=== PATIENT | female | born 2000 | race Hispanic/Latino ===

== ENCOUNTER 2021-02-25 21:21 | Inpatient (IN) | payer OTHER ==
[~2021-02-25] VITALS: Ht 154.9 cm; Wt 73.9 kg
[2021-02-25] MEDS ORDERED: OXYTOCIN DRIP 30 UNITS in IV 1 EA IV SCH (22:40)
[2021-02-25] MEDS ORDERED: OXYTOCIN INJ 10 UNITS/ML VIAL (J2590) IV PRN (22:40)
[2021-02-25] MEDS ORDERED: METHYLERGONOVINE MALEATE 0.2 MG/ML VIAL (J2210) IM PRN (22:40)
[2021-02-25] MEDS ORDERED: LACTATED RINGER'S 1000 ML IV ONE (22:40)
[2021-02-25] MEDS ORDERED: OXYTOCIN DRIP 30 UNITS in IV 1 EA IV PRN ×4 (22:40)
[2021-02-25 22:43] VITALS: BP 121/79
--- NOTE | 2021-02-25 23:07 | HPEPDOC ---
Obstetrical History & Physical General Date of Admission Feb 25, 2021 at 21:21 Primary Care Physician: Chuy Avelar MD History of Present Illness PATIENT BOOKED OR IOL WAS TOLD LGA LAST US BABY AT 90% HEAD CIRCUMFERENCE REST AT 82 % EDC 03/01/21 PATIENT AT 39.3 WEEKS . HOWEVER WHILE HERE ON MONITOR GABE Q 5 MINUTES FELT MILD BY PATIENT Chief Complaint: Contractions, term Information Provided By: Patient Age: 20 : 1 Term: 0 Pre-term: 0 Abortions: 0 Livin Care Care: Good Care Number of Visits: 8 Dating Final EDC: Mar 01, 2021 Final EDC for Daily Update: Mar 01, 2021 LMP: May 05, 2020 1st Trimester Date: Mar 01, 2021 Weeks + Days: 9.0 Estimated Date of Confinement: Mar 01, 2021 EGA at Admission: 39.3 Antepartum Course Diagnos(e)s LGA ON US AT 90% TILE Height (inches): 61 Pre- weight (lbs.): 135 Admission Weight (lbs.): 160 Change in Weight (lbs.): 25 Past Medical History Past Obstetrical History : Past Obstetrical History: [employer] History: No pertinent history, History of STD Past Medical History Medical History NON CONTRIBUTORY Surgical History: Denies/None Family History Significant Family History: No pertinent family hx Social History Marital Status: Family situation: Spouse/partner home Psychosocial History: No pertinent psych hx * Smoker: non-smoker Alcohol: Denies Drugs: denies Abuse Violence Screening Have you been hit/kicked/slapp: No Have you been sexually assault: No Imunizations Tdap status: current Influenza Status: current Physical Examination Physical Examination GENERAL: Alert and oriented times three. BREAST: . ABDOMEN: Gravid and non-tender to touch. FETUS: Is vertex (VTX) by sterile vaginal examination (SVE), fetus is vertex (VTX) by Rolly. HEART RATE: Regular rate and rhythm. LUNGS: Clear to auscultation (CTA). EXTREMITIES: No edema. No clonus. Deep tendon reflexes (DTRs) + . Other physical findings HEENT NORMOCEPHALIC ATRAUMATIC NECK FULL RANGE OF MOTIONS PERRLA' CHEST HRR DISTAL PULSES SYMMETRIC LUNGS CTA NO WHEEZE NO RHONCHI BACK RCVA TENDERNESS ABDOMEN GRAVID 4 QUADRANT BOWEL SOUNDS CONTRACTIONS NOTED SF HEIGHT 39 CM NO RASHES LESIONS NO PRURITUS , NO ARTHRALGIA MYALGIA OR JOINT PAIN, NO COUGH NO SOB NO CRAWLEY, NO BRUISING OR BLEEDING NO BLADDER ISSUES NO N/V/D/C Vital Signs/I&O Vital Signs Date Time Temp Pulse Resp B/P (MAP) Pulse Ox O2 Delivery O2 Flow Rate FiO2 02/25/21 22:43 72 121/79 (93) Laboratory Data 24H LABS Laboratory Tests 2 02/25/21 21:34: Serology Scanned Report Hepatitis B Testing Pertinent Laboratoy Data Blood Type: O+ RBC Antibody Screen: Negative HIV: Negative Hepatitis B: Negative Rapid Plasma Reagin: Nonreactive Rubella: Immune Varicella: Nonreactive Chlamydia/Gonorrhea: Negative Group B Streptococcus: Negative Cystic Fibrosis: Negative Anatomy Ultrasound Ultrasound Date: Feb 14, 2021 Placenta Location: Anterior Normal Anatomy: Yes Estimated Weight (grams): 3280 Steroid Therapy Steroid Therapy: No Vaginal Examination Dilation: 2cm Effacement: 60% Station: -3 Cervical Consistency: Soft Cervical Position: Posterior Presentation: Cephalic presentation Assessment Variability: Moderate Accelerations: Present Decelerations: None Tocometer Contractions: Yes Frequency: regular, every 1-5 min. Duration: less than 60 seconds Strength: palpated as mild Assessment/Plan Assessment 20 year-old (G1 para (P)0 at 39.3 weeks by 9 -week ultrasound. Presents to Labor and Delivery (L&D) .FOR IOL BUT GABE Plan Admit and orient. Yard Caller and consent. Diet: NPO Group B Streptococcus (GBS) [negative]. Labs and intravenous (IV) per unit protocol. Counseled on Pitocin and induction of labor (IOL). Lactated Ringers (LR): Bolus 1000 mL, then at 125 mL/hr. Anticipate [normal spontaneous delivery ()]. C-S as appropriate. Labor and Delivery Counseling REVIEWED PATIENT WITH ACTIVE CONTRACTIONS MAY REQUIRE AUGMENTATION REVIEWED RISK RE HEMORRHAGE INFECTION PERFORATION REOPERATION REMOTE BLOOD TRANSFUSION REMOTE HYSTERECTOMY LIFE THREATENING BLEEDING ADMISSION TO NICU. NEED FOR EMERGENCY CS BASED ON OR MATERNAL NEEDS CONSENTED BEFORE USE OF FORCEPS VACUUM RISK LACERATION HEMATOMA SUBDURAL USE MAY CAUSE LACERATIONS BLADDER BOWEL CERVIX UTERUS NEED REPAIR TACHYSYSTOLE MAY OCCUR OR REMOTE UTERINE RUPTURE Chuy Avelar MD Feb 25, 2021 23:06
[2021-02-25 23:18] LABS: HEMATOCRIT 35.2 % (36.0-47.0); MEAN CORPUSCULAR HEMOGLOBIN 31.6 pg (27.0-33.0); MEAN CORPUSCULAR HGB CONC 34.1 g/dl (32.0-36.5); MEAN CORPUSCULAR VOLUME 92.6 fl (80.0-96.0); PLATELET COUNT, AUTOMATED 165 10^3/uL (150-450); WHITE BLOOD COUNT 10.2 10^3/uL (4.0-10.0)
[2021-02-25] MEDS: LR 1,000 ML IV SCH (23:20)
[2021-02-26] VITALS (49 sets, daily range): BP systolic 105–139; BP diastolic 55–86
[2021-02-26] MEDS ORDERED: UNRESOLVED CLARIFICATION ENTRY XX SCH (00:01)
[2021-02-26] MEDS ORDERED: FENTANYL 2MCG/ML ROPIVACAINE 0.2% IN 0.9% NACL 100ML IVBAG As Ordered ONE ×2 (00:42→09:18)
[2021-02-26] MEDS ORDERED: NALOXONE INJ 0.4MG/1ML VIAL (J2310 PER 1MG) IV PRN (01:50)
[2021-02-26] MEDS ORDERED: LACTATED RINGER'S 1000 ML IV PRN (01:50)
[2021-02-26] MEDS ORDERED: diphenhydrAMINE 50MG/ML VIAL (J1200) IV PRN (01:50)
[2021-02-26] MEDS ORDERED: ePHEDrine SULFATE 25 MG/5 ML(5MG/ML) SYRINGE IV PRN (01:50)
[2021-02-26] MEDS ORDERED: EPIDURAL/PCA KEYS XX PRN (01:50)
[2021-02-26] MEDS ORDERED: ONDANSETRON 4MG/2ML VIAL IV PRN (01:50)
[2021-02-26] MEDS ORDERED: EPIDURAL COMMENT XX SCH (01:50)
[2021-02-26] MEDS ORDERED: REFRIGERATOR IV KEYS XX PRN (01:50)
[2021-02-26] MEDS: FENTANYL/ROPIVACAINE/NACL BAG 100 ML EPIDURAL SCH ×2 (05:47→09:25)
--- NOTE | 2021-02-26 06:52 | IPNPDOC ---
Text Note Date of Service The patient was seen on 02/26/21. NOTE POST EPIDURAL EXAMINATION 9 CM -1 STATION OT WELL APPLIED CATAGORY 1 STRIP INTERMITTENT EPIDURAL EFFECTIVE VS,Fishbone, I+O VS, Fishbone, I+O Laboratory Tests 02/25/21 23:12 Vital Signs Date Time Temp Pulse Resp B/P (MAP) Pulse Ox O2 Delivery O2 Flow Rate FiO2 02/26/21 05:30 83 111/76 (88) 02/26/21 04:00 98.6 20 I&O- Last 24 Hours up to 6 AM 02/26/21 06:00 Intake Total 3890 ml Output Total 1250 ml Balance 2640 ml Chuy Avelar MD Feb 26, 2021 06:52
[2021-02-26] MEDS ORDERED: fentaNYL 100 MCG/2 ML INJECTION (J3010) As Ordered ONE (08:01)
--- NOTE | 2021-02-26 09:49 | IPNPDOC ---
Obstetrical Progress Note Date of Service Feb 26, 2021 Subjective Patient uncomfortable on L side, anesthesia at bedside to assess epidural. Otherwise without complaint Objective Vital Signs Date Time Temp Pulse Resp B/P (MAP) Pulse Ox O2 Delivery O2 Flow Rate FiO2 02/26/21 08:36 95 18 114/73 (87) 02/26/21 08:26 98 Room Air 02/26/21 07:10 98.2 Assessment Heart Rate (FHR): 130 Variability: Moderate Accelerations: Positive Decelerations: Early Heart Rate Tracing: Category I Tocometer Contractions: Yes Frequency: regular, every 2-5 min. Sterile Vaginal Examination Dilation: complete Effacement (%): 100% Station: +1 (per nurse exam) Postion/Presentation: Cephalic presentation Assessment and Plan Status: Reassuring Group B Streptococcus: Negative Anticipate: Vaginal Delivery Additional Comments 20yo at 39w4d admitted for IOL secondary to concern for LGA. Pt uncomfortable on L side, epidural redosed. RN attempted practice push with poor maternal pushing efforts. Offered to attempt pushing again vs. allowing pt to try to rest with epidural redose. Pt requesting to wait. status reassuring. Will reassess in 1 hr ALBAN VINES M.D. Feb 26, 2021 09:49
[2021-02-26] MEDS ORDERED: LIDOCAINE 1% MDV 50ML VIAL As Ordered ONE (13:30)
[2021-02-26 13:38] LABS: CORD GAS ABE A -10.2; CORD GAS HCO3 A 19.8 MEQ/L; CORD GAS PCO2 A 60.5 mmHg; CORD GAS PH A 7.133 UNITS; CORD GAS SBC A 15.6 MEQ/L; CORD GAS TCO2 A 21.7 MEQ/L
[2021-02-26 13:41] LABS: CORD GAS ABE V -11.1; CORD GAS HCO3 V 16.7 MEQ/L; CORD GAS O2 SAT V 70.3 %; CORD GAS PCO2 V 44.2 mmHg; CORD GAS PH V 7.196 UNITS; CORD GAS PO2 V 33.7 mmHg; CORD GAS SBC V 15.3 MEQ/L; CORD GAS TCO2 V 18.1 MEQ/L
[2021-02-26] MEDS ORDERED: LIDOCAINE 1% MDV 50ML VIAL SC ONE (14:00)
[2021-02-26] MEDS ORDERED: ACETAMINOPHEN TAB 650MG DOSE (2X325MG) PO PRN (14:00)
[2021-02-26] MEDS ORDERED: DIBUCAINE 1% OINTMENT 30GM TOP PRN (14:00)
[2021-02-26] MEDS ORDERED: MEASLES,MUMPS,RUBELLA VACCINE INJ (MMR-II) (90707) SC SCH (14:00)
[2021-02-26] MEDS ORDERED: DOCUSATE SODIUM 100MG CAPSULE PO PRN (14:00)
[2021-02-26] MEDS ORDERED: IBUPROFEN 600MG TAB PO PRN (14:00)
[2021-02-26] MEDS ORDERED: RHOGAM 300 MCG (1500 IU) INJ (J2790) IM SCH (14:00)
[2021-02-26] MEDS ORDERED: ACETAMINOPHEN 500 MG TAB PO PRN (14:00)
[2021-02-26] MEDS ORDERED: METHYLERGONOVINE MALEATE 0.2 MG TAB PO PRN (14:00)
--- NOTE | 2021-02-26 14:21 | DNPDOC ---
[facility] Delivery Note Delivery Note DATE OF DELIVERY: 02/26/21 PREDELIVERY DIAGNOSIS: 39 4/7 weeks' gestation and labor. POST DELIVERY DIAGNOSIS: Delivered. PROCEDURE: Spontaneous vaginal delivery. Repair of R labial laceration LOCK AND DAM REPAIRER: Dr. Vines ANESTHESIA: Epidural ESTIMATED BLOOD LOSS: 200 mL. FINDINGS: 7 pound 13 ounce male , Score 7/9. Terminal meconium noted. R labial laceration - repaired. Cord gases pending. DELIVERY SUMMARY: 20yo at 39w4d admitted for IOL secondary to concern for LGA. IOL performed with pitocin. She progressed to C/C/+1 and was allowed to push. Patient initially had poor maternal pushing efforts due to epidural. She slowly progressed to +3 station and delivered the head in OA position. Head was allowed to restitute to YIN. Anterior shoulder delivered without difficulty and infant placed on mother's abdomen. Terminal meconium noted. Cord doubly clamped and cut by father of baby. Cord gasses obtained. Placenta delivered intact. Perineum inspected with R labial laceration noted. EBL 200cc. Mom and baby stable immediately ALBAN VINES M.D. Feb 26, 2021 14:21
[2021-02-26] MEDS: LR 1,000 ML IV SCH (14:40)
[2021-02-26] MEDS ORDERED: SLF 3 ML SYR IV PRN (15:05)
[2021-02-26] MEDS: IBUPROFEN 800 MG TAB PO PRN (16:58)
[2021-02-26] MEDS: PRENATAL VITAMINS CHEWABLE TABLET PO SCH (17:16)
[2021-02-26] MEDS: SLF 3 ML SYR IV SCH (23:35)
[2021-02-27 06:00] VITALS: BP 111/61
[2021-02-27] MEDS: SLF 3 ML SYR IV SCH ×2 (06:39→14:00)
--- NOTE | 2021-02-27 07:40 | IPNPDOC ---
Progress Note Date of Service: Feb 27, 2021 Progress Note SUBJECT: Aicha is a 20-year-old 1 now Para 1001 status post uncomplicated spontaneous vaginal delivery at 39 4/7 weeks' on 02/26/21 of a 7 pound 13 ounce male infant, Score 7/9. Terminal meconium noted. R labial laceration. Pt doing well day # 1. She has been ambulating, voiding spontaneously without issue and tolerating regular diet. Breast feeding without issue. Reports lochia is minimal. OBJECTIVE: VITAL SIGNS: Within normal limits, afebrile. Alert and oriented times three. normal work of breathing Heart rate: Regular rate and rhythm Abdomen: Fundus firm at U-2. Soft, NTTP. ASSESSMENT: Aicha is a 20-year-old 1 now Para 1001 status post uncomplicated spontaneous vaginal delivery at 39 4/7 weeks' on 02/26/21 of a 7 pound 13 ounce male infant, Score 7/9. Terminal meconium noted. R labial laceration. Pt doing well day # 1. Vitals within normal limits, afebrile, hemodynamically stable with no evidence of infection. PLAN: 1. Discharge to home tomorrow. 2. Tylenol and Motrin for pain. 3. Encourage breast feeding and ambulation. 4. Has minipill for contraception 5. Routine PP visit in 6 weeks in clinic. 6. Discussed return precautions at length. VS, I&O, 24H, Fishbone Vital Signs/I&O Vital Signs Label Value Date Time Patient Temperature 97.8 degrees F 02/27/21 0600 Temperature Source Temporal 02/27/21 0600 Pulse 105 02/27/21 0600 Respiratory Rate 18 bpm 02/27/21 0600 Blood Pressure Assessment 111/61 (78) 02/27/21 0600 Source Automatic Cuff (NIBP) Bedside Pulse Oximetry 100 % 02/27/21 0600 Vital Signs Date Time Temp Pulse Resp B/P (MAP) Pulse Ox O2 Delivery O2 Flow Rate FiO2 02/27/21 06:00 97.8 105 18 111/61 (78) 100 Room Air 02/26/21 18:00 98.5 83 18 123/73 (90) 97 02/26/21 16:10 98.3 81 18 119/77 (91) 97 Room Air 02/26/21 08:36 95 18 114/73 (87) 02/26/21 08:26 75 18 115/67 (83) 98 Room Air 02/26/21 08:22 81 18 112/69 (83) 02/26/21 08:16 90 18 117/55 (75) 97 Room Air 02/26/21 08:15 88 18 02/26/21 08:11 84 18 139/83 (101) 100 Room Air 02/26/21 08:02 88 18 120/73 (89) 100 Room Air 02/26/21 07:56 88 18 118/72 (87) 97 Room Air 02/26/21 07:50 91 18 135/84 (101) 100 Room Air 02/26/21 07:41 89 18 131/80 (97) Intake & Output 02/27/21 05:59 Intake Total 2056 ml Output Total 1850 ml Balance 206 ml Laboratory Tests 02/26/21 13:33: Cord Arterial Blood pH 7.133, Cord Arterial Blood PCO2 60.5, Cord Arterial Blood PO2 26.0, Cord Arterial Blood HCO3 19.8, Cord Arterial Blood Total CO2 21.7, Cord Arterial Blood Base Excess -10.2, Cord Arterial Base Excess (Standard 15.6, Cord Arterial Bld Oxygen Saturation 51.0, Cord Venous Blood pH 7.196, Cord Venous Blood PCO2 44.2, Cord Venous Blood PO2 33.7, Cord Venous Blood HCO3 16.7, Cord Venous Blood Total CO2 18.1, Cord Venous Base Excess (Actual) -11.1, Cord Venous Base Excess (Standard) 15.3, Cord Venous Blood Oxygen Saturation 70.3 Current Medications Medications (Trade) Dose Ordered Sig/Kiersten Route PRN Reason Start Time Stop Time Status Last Admin Dose Admin Dibucaine (Dibucaine 1%) Apply to perineum Q4H PRN TOP pp 02/26/21 14:00 02/26/21 16:58 1 DOSE Ibuprofen (Advil) 800 mg Q8HP PRN PO PAIN LEVEL 6-10 02/26/21 14:00 02/26/21 16:58 800 MG Sodium Chloride (Saline Lock Flush) 2 ml SLF IV 02/26/21 22:00 02/27/21 06:39 2 ML Vital Signs Date Time Temp Pulse Resp B/P (MAP) Pulse Ox O2 Delivery O2 Flow Rate FiO2 02/26/21 18:00 98.5 83 18 123/73 (90) 97 02/26/21 16:10 Room Air I&O- Last 24 Hours up to 6 AM 02/27/21 05:59 Intake Total 2056 ml Output Total 1850 ml Balance 206 ml Laboratory Data 24H LABS Laboratory Tests 2 02/26/21 13:33: Cord Arterial Blood pH 7.133, Cord Arterial Blood PCO2 60.5, Cord Arterial Blood PO2 26.0, Cord Arterial Blood HCO3 19.8, Cord Arterial Blood Total CO2 21.7, Cord Arterial Blood Base Excess -10.2, Cord Arterial Base Excess (Standard 15.6, Cord Arterial Bld Oxygen Saturation 51.0, Cord Venous Blood pH 7.196, Cord Venous Blood PCO2 44.2, Cord Venous Blood PO2 33.7, Cord Venous Blood HCO3 16.7, Cord Venous Blood Total CO2 18.1, Cord Venous Base Excess (Actual) -11.1, Cord Venous Base Excess (Standard) 15.3, Cord Venous Blood Oxygen Saturation 70.3 ALBAN VINES M.D. Feb 27, 2021 05:03
[2021-02-27] MEDS: PRENATAL VITAMINS CHEWABLE TABLET PO SCH (09:38)
[2021-02-27] MEDS: IBUPROFEN 800 MG TAB PO PRN (14:48)
[2021-02-27 17:50] VITALS: BP 115/78
[2021-02-28 05:56] VITALS: BP 116/71
[2021-02-28] MEDS ORDERED: IBUP-1022 PO (06:59)
[2021-02-28] MEDS ORDERED: COLA100C5 PO (06:59)
--- NOTE | 2021-02-28 07:15 | DSES ---
DISCHARGE SUMMARY DATE OF ADMISSION: 02/25/2021 DATE OF DISCHARGE: 02/28/2021 BRIEF HISTORY: Patient is a 20-year-old 1 now para 1, admitted for induction of labor because of a large for gestational age at 39 and 4 weeks gestation. Epidural in place, male infant, 7 pounds, 13 ounces, 3540 grams. Apgars of 7 and 9 at 1 and 5 minutes respectively. Terminal meconium was noted. Arterial pH 7.13, base excess -10.2, venous pH 7.19, base excess -11.1. On her second day we discussed phlebitis, cystitis, mastitis, endometritis, cellulitis, diet, exercise, pain management, perineal and breast care. OBJECTIVE: Her vital signs on discharge: Blood pressure 116/71, respirations 16, pulse 78, temperature 98.0. Her admitting hemoglobin was 12.0, hematocrit 35.2 and platelets are 165,000. The rest of the examination is unremarkable. Normocephalic, atraumatic. Neck is with full range of motion. Pupils are equal and reactive to light. Distal pulses are symmetric. No evidence of DVT, PE or superficial phlebitis. Chest is clear bilaterally at bases. No wheezes or rhonchi. No CVA tenderness. Abdomen is soft, four quadrant bowel sounds are noted. The uterus is 2 below. Lochial is moderate. The perineum is healing. No rashes, lesions or pruritus. No arthralgia or myalgias. No complaint of joint pain. No complaint of cough, wheeze, shortness of breath or dyspnea on exertion. No nausea, vomiting, diarrhea or constipation. No urgency or frequency. IMPRESSION: In summary, we have a term gestation, delivered a livebirth male infant. We discussed medication pickup at [facility], a six week checkup at [facility]. All questions were answered. A 20 minute discussion. Patient was discharged improved. cc: [facility]
[2021-02-28] MEDS: PRENATAL VITAMINS CHEWABLE TABLET PO SCH (09:04)
[2021-02-28] MEDS: IBUPROFEN 800 MG TAB PO PRN (13:34)
--- NOTE | 2021-03-01 17:24 | IPN ---
PROGRESS NOTE DATE: 02/27/2021 SUBJECTIVE: This patient requested circumcision of their male infant. After discussing risks and benefits of circumcision, the medical and nonmedical indications, the penile block and aftercare, expressed understanding of penile block, aftercare and bleeding, signed the consent form. All questions were answered, 20 minute discussion. We await clearance by the teller.
== END 2021-02-28 14:59 | disposition home or self-care (01) | DRG 807 ==
LOC: M LDI 21:21 → M OBS 02-26 16:22
PROVIDERS: ADMIT Obstetrics & Gynecology; ATTEND Obstetrics & Gynecology
PROC: 10E0XZZ Delivery of Products of Conception, External Approach (ICD-10-PCS; principal; 2021-02-26)
PROC: 0HQ9XZZ Repair Perineum Skin, External Approach (ICD-10-PCS; 2021-02-26)
DX: O70.0 First degree perineal laceration during delivery (principal); Z37.0 Single live birth; Z3A.39 39 weeks gestation of pregnancy; O77.0 Labor and delivery complicated by meconium in amniotic fluid